=== PATIENT | female | born 1970 | race Caucasian/White ===

== ENCOUNTER 2016-12-22 22:32 | Emergency (ER) | payer OTHER ==
[~2016-12-22] VITALS: Ht 154.9 cm; Wt 90.8 kg
[~2016-12-22 22:32] MED LIST: Depo-Provera IM; PriLOSEC PO; Tylenol Extra Streng PO; Vicodin,Lortab 5/500 PO
[2016-12-23] MEDS ORDERED: ULTRACET1 TABLET PO (00:09)
[2016-12-23 00:40] VITALS: BP 153/82
== END 2016-12-23 00:41 | disposition home or self-care (01) ==
LOC: EME 22:32 → RME 12-23 00:41
PROC: 2W3KX1Z Immobilization of Left Finger using Splint (ICD-10-PCS; principal; 2016-12-22)
DX: S63.611A Unspecified sprain of left index finger, initial encounter (principal); W22.8XXA Striking against or struck by other objects, initial encounter
CPT/HCPCS: 73120; 73130; 99281; 99283